=== PATIENT | female | born 1970 | race American Indian/Alaskan Native ===

== ENCOUNTER 2017-02-20 10:41 | Outpatient (CLI) | payer BC ==
--- NOTE | 2017-02-20 15:08 | Mammography Report ---
BILATERAL DIGITAL SCREENING MAMMOGRAM with CAD and 3-D TOMOSYNTHESIS: 02/20/17 11:00:00 CLINICAL: Routine screening. COMPARISON:03/06/15 FINDINGS: The breasts are heterogeneously dense, which may obscure small masses. Bilateral partially circumscribed asymmetries are identified on the tomosynthesis views and require additional imaging. No architectural distortion or suspicious calcifications. IMPRESSION: Bilateral asymmetries requiring further workup. BI-RADS CATEGORY: 0--Needs Additional Imaging RECOMMENDATION: Recall for bilateral global breast ultrasound. COMMENT: Patient follow-up letters are generated by our [employer] application.
== END 2017-02-20 10:42 | disposition home or self-care (01) ==
LOC: MAMMO 10:41
PROVIDERS: ATTEND Family Medicine
DX: Z12.31 Encounter for screening mammogram for malignant neoplasm of breast (principal)
CPT/HCPCS: 77063; G0202; 77067